=== PATIENT | female | born 1945 | race Caucasian/White ===

== ENCOUNTER 2020-10-31 19:24 | Emergency (ER) | payer OTHER ==
[~2020-10-31 19:24] MED LIST: ABILIFY5 M1 PO; ALPRAZOLAM 1MG T1 MG PO; AMBIEN CR12.5 MG PO; ARICEPT 5MG TABL5 MG PO; ASCORBIC ACID500 MG PO; ASPIRIN EC81 MG PO; AZO CRANBERRY1 EAC1 PO; BENTYL10 MG PO; BUSPIRONE HCL15 M1 PO; BUSPIRONE HCL15 MG PO; CITRATE OF MAG296 ML PO; COLACE100 MG PO; DICYCLOMINE 10M10 MG PO; DITROPAN5 MG PO; FLONASE ALLER15.8 ML; FLUTICASONE PRO16 GM INH; LEVAQUIN500 MG PO; LEVOTHYROXINE125 MCG PO; LISINOPRIL 20MG20 MG PO; LOPRESSOR25 MG PO; MACROBID100 MG PO; MACRODANTIN50 MG PO; MIRALAX17 GM PO; NORTRIPTYLINE H75 MG PO; OXYBUTYNIN CHLOR5 M1 PO; PAMELOR50 MG PO; PAMELOR75 MG PO; PRILOSEC20 MG PO; PRINIVIL20 MG PO; RISPERDAL 1MG TA1 MG PO; SYNTHROID112 MCG PO; SYNTHROID125 MC1 PO; SYNTHROID150 MCG PO; VITAMIN D3 COM1 EACH PO; VITAMIN D3250 MC1 PO; XANAX0.5 MG PO; XANAX1 MG PO; ZOFRAN4 MG PO; ZOLPIDEM TART12.5 MG PO
[2020-10-31 20:55] LABS: BASOPHIL 0.5 % (0-2); EOSINOPHIL 4.8 % (0-7); HGB 12.7 g/dl (12.5-16.0); LYMPHOCYTE 37.9 % (15-48); MCH 30.5 pg (25.0-31.0); MCHC 33.4 g/dL (32.0-36.0); MCV 91.3 fL (78.0-100.0); MONOCYTE 11.1 % (0-12); MPV 9.8 fL (6.0-9.5); NEUTROPHIL 45.5 % (41-80); NRBC 0; PLT 235 K/uL (150-400); RBC 4.16 M/uL (4.20-5.40); RDW 13.4 % (11.5-14.0); WBC 9.6 K/uL (4.0-10.5)
[2020-10-31 21:14] LABS: BILIRUBIN - TOTAL 0.3 mg/dL (0.2-1.0); BUN/CREAT RATIO (CALC) 17.4 RATIO; CREATININE 0.86 mg/dL (0.51-0.95); GLOBULIN (CALCULATION) 3.2 g/dL; TOTAL PROTEIN 6.2 g/dL (6.4-8.2)
[2020-10-31 21:20] LABS: LACTIC ACID 2.4 mmol/L (0.4-1.9)
[2020-11-01] MEDS ORDERED: CITRATE OF MAG296 ML PO (00:23)
[2020-11-01] MEDS ORDERED: GAS-X ULTRA ST180 MG PO (00:23)
[2020-11-01] MEDS ORDERED: ONDANSETRON ODT4 MG SL (00:23)
[2020-11-01] MEDS ORDERED: MIRALAX17 GM PO (00:23)
[2020-11-01] MEDS ORDERED: LEVSIN-SL0.125 M1 SL (00:23)
== END 2020-11-01 01:10 | disposition home or self-care (01) ==
LOC: FER 19:24
PROVIDERS: Emergency Medicine Emergency Medical Services
DX: K59.00 Constipation, unspecified (principal); I10 Essential (primary) hypertension; Z88.2 Allergy status to sulfonamides; Z88.8 Allergy status to other drugs, medicaments and biological substances
CPT/HCPCS: 36415; 74022; 80053; 83605; 83690; 84145; 85025; J2270; J2405; J7030

== ENCOUNTER 2020-12-12 09:42 | Emergency (ER) | payer OTHER ==
[~2020-12-12 09:42] MED LIST changes: +GAS-X ULTRA ST180 MG PO; +LEVSIN-SL0.125 M1 SL; +ONDANSETRON ODT4 MG SL
== END 2020-12-12 12:23 | disposition home or self-care (01) ==
LOC: FER 09:42
DX: M17.0 Bilateral primary osteoarthritis of knee (principal); M51.36 Other intervertebral disc degeneration, lumbar region; I10 Essential (primary) hypertension; Z88.0 Allergy status to penicillin; Z88.8 Allergy status to other drugs, medicaments and biological substances
CPT/HCPCS: 72100; 73560

== ENCOUNTER 2020-12-14 08:57 | Emergency (ER) | payer OTHER ==
[2020-12-14 10:28] LABS: BASOPHIL 0.5 % (0-2); EOSINOPHIL 6.4 % (0-7); HCT 42.9 % (37.0-47.0); HGB 14.3 g/dl (12.5-16.0); LYMPHOCYTE 24.5 % (15-48); MCH 30.7 pg (25.0-31.0); MCHC 33.3 g/dL (32.0-36.0); MCV 92.1 fL (78.0-100.0); MONOCYTE 9.7 % (0-12); NEUTROPHIL 58.6 % (41-80); NRBC 0; PLT 227 K/uL (150-400); RBC 4.66 M/uL (4.20-5.40); RDW 13.7 % (11.5-14.0); WBC 9.9 K/uL (4.0-10.5)
[2020-12-14 10:38] LABS: BILIRUBIN NEGATIVE (NEGATIVE); BLOOD NEGATIVE Ery/uL (NEGATIVE); COLOR YELLOW (YELLOW); GLUCOSE (U) NORMAL (NORMAL); LEUKOCYTES 2+ Leu/uL (NEGATIVE); NITRITE POSITIVE (NEGATIVE); PROTEIN NEGATIVE (NEGATIVE); UROBILINOGEN 0.2 mg/dL (0.2-1.0); pH 6.5 (5.0-9.0)
[2020-12-14 10:48] LABS: ALBUMIN 3.3 g/dL (3.4-5.0); BILIRUBIN - TOTAL 0.5 mg/dL (0.2-1.0); BUN/CREAT RATIO (CALC) 19.4 RATIO; CREATININE 1.24 mg/dL (0.51-0.95); GLOBULIN (CALCULATION) 3.3 g/dL; POTASSIUM 4.4 mmol/L (3.5-5.1); TOTAL PROTEIN 6.6 g/dL (6.4-8.2)
[2020-12-14 10:51] LABS: LACTIC ACID 1.6 mmol/L (0.4-1.9)
[2020-12-14 10:54] LABS: CLARITY CLOUDY (CLEAR)
[2020-12-14 11:07] LABS: BACTERIA 2+
[2020-12-14] MEDS ORDERED: NORCO 5-325 TA1 EACH PO (11:18)
[2020-12-14] MEDS ORDERED: MACROBID100 MG PO (11:18)
== END 2020-12-14 12:56 | disposition home or self-care (01) ==
LOC: FER 08:57
PROVIDERS: Internal Medicine
DX: M53.3 Sacrococcygeal disorders, not elsewhere classified (principal); N39.0 Urinary tract infection, site not specified; M25.552 Pain in left hip; Z88.1 Allergy status to other antibiotic agents; I10 Essential (primary) hypertension; Z88.2 Allergy status to sulfonamides; W01.10XA Fall on same level from slipping, tripping and stumbling with subsequent striking against unspecified object, initial encounter; Y92.009 Unspecified place in unspecified non-institutional (private) residence as the place of occurrence of the external cause
CPT/HCPCS: 36415; 70450; 71045; 80053; 81001; 83605; 83880; 84145; 84484; 85025; 87076; 87088; 87186; 93005; J0696

== ENCOUNTER 2021-04-04 06:38 | Emergency (ER) | payer OTHER ==
[~2021-04-04 06:38] MED LIST changes: +NORCO 5-325 TA1 EACH PO
[2021-04-04 07:42] LABS: BASOPHIL 0.8 % (0-2); EOSINOPHIL 2.4 % (0-7); HCT 41.5 % (37.0-47.0); HGB 13.9 g/dl (12.5-16.0); LYMPHOCYTE 21.6 % (15-48); MCH 30.4 pg (25.0-31.0); MCHC 33.5 g/dL (32.0-36.0); MCV 90.8 fL (78.0-100.0); MONOCYTE 10.4 % (0-12); MPV 9.3 fL (6.0-9.5); NEUTROPHIL 64.2 % (41-80); NRBC 0; PLT 259 K/uL (150-400); RBC 4.57 M/uL (4.20-5.40); RDW 13.4 % (11.5-14.0); WBC 10.4 K/uL (4.0-10.5)
[2021-04-04 08:07] LABS: BUN/CREAT RATIO (CALC) 19.4 RATIO; CREATININE 0.93 mg/dL (0.51-0.95); POTASSIUM 3.5 mmol/L (3.5-5.1)
[2021-04-04 08:23] LABS: BILIRUBIN NEGATIVE (NEGATIVE); BLOOD NEGATIVE Ery/uL (NEGATIVE); CLARITY CLEAR (CLEAR); COLOR YELLOW (YELLOW); GLUCOSE (U) NORMAL (NORMAL); LEUKOCYTES 3+ Leu/uL (NEGATIVE); NITRITE NEGATIVE (NEGATIVE); PROTEIN NEGATIVE (NEGATIVE); SPECIFIC GRAVITY 1.015 (1.001-1.030); UROBILINOGEN 0.2 mg/dL (0.2-1.0)
[2021-04-04 08:57] LABS: BACTERIA 1+; URINARY WBC 20-50
[2021-04-04] MEDS ORDERED: MACROBID100 MG PO (09:09)
== END 2021-04-04 09:50 | disposition home or self-care (01) ==
LOC: FER 06:38
PROVIDERS: Emergency Medicine
DX: R68.2 Dry mouth, unspecified (principal); N39.0 Urinary tract infection, site not specified; I10 Essential (primary) hypertension; Z88.2 Allergy status to sulfonamides; Z88.8 Allergy status to other drugs, medicaments and biological substances
CPT/HCPCS: 36415; 80048; 81001; 85025; 99283; J7040

== ENCOUNTER 2021-06-02 18:31 | Inpatient (IN) | payer OTHER ==
[~2021-06-02] VITALS: Ht 165.1 cm; Wt 73.1 kg
[2021-06-02 19:24] LABS: BILIRUBIN NEGATIVE (NEGATIVE); BLOOD NEGATIVE Ery/uL (NEGATIVE); CLARITY CLEAR (CLEAR); COLOR YELLOW (YELLOW); GLUCOSE (U) NORMAL (NORMAL); LEUKOCYTES 1+ Leu/uL (NEGATIVE); NITRITE POSITIVE (NEGATIVE); PROTEIN NEGATIVE (NEGATIVE); UROBILINOGEN 0.2 mg/dL (0.2-1.0)
[2021-06-02 19:32] LABS: AMORPHOUS URATES CRYSTALS TRACE; BACTERIA TRACE; MUCOUS TRACE; URINARY RBC RARE
[2021-06-02 19:41] LABS: BASOPHIL 0.8 % (0-2); EOSINOPHIL 1.2 % (0-7); HGB 15.7 g/dl (12.5-16.0); LYMPHOCYTE 32.3 % (15-48); MCH 30.1 pg (25.0-31.0); MCHC 34.1 g/dL (32.0-36.0); MCV 88.3 fL (78.0-100.0); MONOCYTE 8.1 % (0-12); MPV 9.9 fL (6.0-9.5); NEUTROPHIL 57.3 % (41-80); NRBC 0; PLT 285 K/uL (150-400); RBC 5.21 M/uL (4.20-5.40); RDW 12.8 % (11.5-14.0); WBC 11.8 K/uL (4.0-10.5)
[2021-06-02 20:08] LABS: BILIRUBIN - TOTAL 0.5 mg/dL (0.2-1.0); BUN/CREAT RATIO (CALC) 16.7 RATIO; CREATININE 1.02 mg/dL (0.51-0.95); GLOBULIN (CALCULATION) 4.2 g/dL; POTASSIUM 3.8 mmol/L (3.5-5.1); TOTAL PROTEIN 8.2 g/dL (6.4-8.2)
[2021-06-02 20:25] LABS: LACTIC ACID 0.9 mmol/L (0.4-1.9)
[2021-06-02] MEDS ORDERED: ASPIRIN EC81 MG PO (23:09)
[2021-06-02] MEDS ORDERED: CRANBERRY250 MG PO (23:17)
[2021-06-03 06:11] LABS: BASOPHIL 0.6 % (0-2); EOSINOPHIL 0.4 % (0-7); HCT 42.2 % (37.0-47.0); HGB 14.8 g/dl (12.5-16.0); LYMPHOCYTE 25.7 % (15-48); MCH 30.7 pg (25.0-31.0); MCHC 35.1 g/dL (32.0-36.0); MCV 87.6 fL (78.0-100.0); MPV 9.7 fL (6.0-9.5); NRBC 0; PLT 252 K/uL (150-400); RBC 4.82 M/uL (4.20-5.40); RDW 12.9 % (11.5-14.0); WBC 12.9 K/uL (4.0-10.5)
[2021-06-03 07:05] LABS: ALBUMIN 3.5 g/dL (3.4-5.0); BILIRUBIN - TOTAL 0.8 mg/dL (0.2-1.0); BUN/CREAT RATIO (CALC) 13.7 RATIO; CREATININE 0.95 mg/dL (0.51-0.95); GLOBULIN (CALCULATION) 3.6 g/dL; MAGNESIUM 1.5 mg/dL (1.8-2.4); PHOSPHORUS 3.8 mg/dL (2.6-4.7); POTASSIUM 3.6 mmol/L (3.5-5.1); TOTAL PROTEIN 7.1 g/dL (6.4-8.2)
[2021-06-04 05:59] LABS: BASOPHIL 0.7 % (0-2); EOSINOPHIL 3.6 % (0-7); HCT 43.4 % (37.0-47.0); HGB 14.6 g/dl (12.5-16.0); LYMPHOCYTE 36.5 % (15-48); MCH 29.8 pg (25.0-31.0); MCHC 33.6 g/dL (32.0-36.0); MCV 88.6 fL (78.0-100.0); MONOCYTE 11.2 % (0-12); MPV 9.5 fL (6.0-9.5); NEUTROPHIL 47.7 % (41-80); NRBC 0; PLT 255 K/uL (150-400); RDW 13.2 % (11.5-14.0); WBC 9.8 K/uL (4.0-10.5)
[2021-06-04 06:20] LABS: BUN/CREAT RATIO (CALC) 13.5 RATIO; CREATININE 0.96 mg/dL (0.51-0.95); POTASSIUM 3.8 mmol/L (3.5-5.1)
[2021-06-05 06:38] LABS: BASOPHIL 0.8 % (0-2); EOSINOPHIL 5.5 % (0-7); HCT 40.5 % (37.0-47.0); HGB 13.2 g/dl (12.5-16.0); LYMPHOCYTE 32.8 % (15-48); MCH 29.9 pg (25.0-31.0); MCHC 32.6 g/dL (32.0-36.0); MCV 91.8 fL (78.0-100.0); MPV 9.7 fL (6.0-9.5); NEUTROPHIL 50.6 % (41-80); NRBC 0; PLT 223 K/uL (150-400); RBC 4.41 M/uL (4.20-5.40); RDW 13.6 % (11.5-14.0); WBC 10.3 K/uL (4.0-10.5)
[2021-06-05 07:13] LABS: BUN/CREAT RATIO (CALC) 15.8 RATIO; CREATININE 1.14 mg/dL (0.51-0.95); POTASSIUM 3.9 mmol/L (3.5-5.1)
[2021-06-05] MEDS ORDERED: FLORANEX TABLE1 EACH PO (08:32)
[2021-06-06 06:27] LABS: BASOPHIL 0.9 % (0-2); EOSINOPHIL 5.6 % (0-7); HCT 40.9 % (37.0-47.0); HGB 13.3 g/dl (12.5-16.0); LYMPHOCYTE 32.5 % (15-48); MCH 30.1 pg (25.0-31.0); MCHC 32.5 g/dL (32.0-36.0); MCV 92.5 fL (78.0-100.0); MONOCYTE 9.3 % (0-12); MPV 10.1 fL (6.0-9.5); NEUTROPHIL 51.4 % (41-80); NRBC 0; PLT 228 K/uL (150-400); RBC 4.42 M/uL (4.20-5.40); RDW 13.5 % (11.5-14.0); WBC 9.3 K/uL (4.0-10.5)
== END 2021-06-06 14:20 | disposition home or self-care (01) | DRG 689 ==
LOC: FER 18:31 → FMS 20:58
PROVIDERS: Emergency Medicine; Family Medicine; Nurse Practitioner; ADMIT Internal Medicine
DX: N30.00 Acute cystitis without hematuria (principal); G93.41 Metabolic encephalopathy; Z20.822 Contact with and (suspected) exposure to COVID-19; I12.9 Hypertensive chronic kidney disease with stage 1 through stage 4 chronic kidney disease, or unspecified chronic kidney disease; N18.30 Chronic kidney disease, stage 3 unspecified; K59.01 Slow transit constipation; B95.61 Methicillin susceptible Staphylococcus aureus infection as the cause of diseases classified elsewhere; F25.9 Schizoaffective disorder, unspecified; E83.42 Hypomagnesemia; K21.9 Gastro-esophageal reflux disease without esophagitis; M19.90 Unspecified osteoarthritis, unspecified site; Z96.651 Presence of right artificial knee joint; Z79.899 Other long term (current) drug therapy; Z88.2 Allergy status to sulfonamides; Z88.1 Allergy status to other antibiotic agents; Z88.8 Allergy status to other drugs, medicaments and biological substances; Z90.49 Acquired absence of other specified parts of digestive tract; Z90.710 Acquired absence of both cervix and uterus; Z98.890 Other specified postprocedural states
CPT/HCPCS: 36415; 70450; 80048; 80053; 81001; 83605; 83735; 84100; 84145; 85025; 87040; 87076; 87088; 87186; 97110; 97162; 97165; 97530-GP; 97535; G0378; J1630; J1650; J2060; J2543; J3490; J7030; U0002

== ENCOUNTER 2021-09-02 06:48 | Emergency (ER) | payer OTHER ==
[~2021-09-02 06:48] MED LIST changes: +CRANBERRY250 MG PO; +FLORANEX TABLE1 EACH PO
[2021-09-02 08:12] LABS: BASOPHIL 0.7 % (0-2); EOSINOPHIL 4.8 % (0-7); HCT 43.4 % (37.0-47.0); HGB 14.5 g/dl (12.5-16.0); LYMPHOCYTE 31.4 % (15-48); MCH 30.4 pg (25.0-31.0); MCHC 33.4 g/dL (32.0-36.0); MONOCYTE 10.5 % (0-12); MPV 9.8 fL (6.0-9.5); NEUTROPHIL 52.2 % (41-80); NRBC 0; PLT 259 K/uL (150-400); RBC 4.77 M/uL (4.20-5.40); RDW 13.2 % (11.5-14.0); WBC 10.1 K/uL (4.0-10.5)
[2021-09-02 08:41] LABS: BILIRUBIN NEGATIVE (NEGATIVE); BLOOD NEGATIVE Ery/uL (NEGATIVE); COLOR YELLOW (YELLOW); GLUCOSE (U) NORMAL (NORMAL); LEUKOCYTES 2+ Leu/uL (NEGATIVE); NITRITE NEGATIVE (NEGATIVE); PROTEIN NEGATIVE (NEGATIVE); SPECIFIC GRAVITY <=1.005 (1.001-1.030); UROBILINOGEN 0.2 mg/dL (0.2-1.0)
[2021-09-02 08:42] LABS: CLARITY HAZY (CLEAR)
[2021-09-02 08:48] LABS: BACTERIA TRACE; URINARY RBC RARE; URINARY WBC 20-50
[2021-09-02 08:50] LABS: ALBUMIN 3.5 g/dL (3.4-5.0); BILIRUBIN - TOTAL 0.2 mg/dL (0.2-1.0); BUN/CREAT RATIO (CALC) 16.5 RATIO; CREATININE 1.03 mg/dL (0.51-0.95); GLOBULIN (CALCULATION) 3.7 g/dL; POTASSIUM 4.1 mmol/L (3.5-5.1); TOTAL PROTEIN 7.2 g/dL (6.4-8.2)
[2021-09-02] MEDS ORDERED: BENZTROPINE MESY1 MG PO (09:18)
== END 2021-09-02 09:34 | disposition home or self-care (01) ==
LOC: FER 06:48
PROVIDERS: Emergency Medicine
DX: N39.0 Urinary tract infection, site not specified (principal); E05.90 Thyrotoxicosis, unspecified without thyrotoxic crisis or storm; E03.9 Hypothyroidism, unspecified; M54.2 Cervicalgia; I10 Essential (primary) hypertension; Z88.2 Allergy status to sulfonamides; Z88.8 Allergy status to other drugs, medicaments and biological substances; Z79.890 Hormone replacement therapy; Z79.899 Other long term (current) drug therapy
CPT/HCPCS: 36415; 36600; 71045; 80053; 81001; 82803; 84439; 84443; 84481; 85025; 87088

== ENCOUNTER 2021-09-21 01:06 | Emergency (ER) | payer OTHER ==
[~2021-09-21 01:06] MED LIST changes: +BENZTROPINE MESY1 MG PO
== END 2021-09-21 02:52 | disposition home or self-care (01) ==
LOC: FER 01:06
DX: S01.112A Laceration without foreign body of left eyelid and periocular area, initial encounter (principal); S51.012A Laceration without foreign body of left elbow, initial encounter; Z88.0 Allergy status to penicillin; Z88.1 Allergy status to other antibiotic agents; Z88.2 Allergy status to sulfonamides; W18.30XA Fall on same level, unspecified, initial encounter; Y92.129 Unspecified place in nursing home as the place of occurrence of the external cause
CPT/HCPCS: 70450; 70486; 72125

== ENCOUNTER 2021-10-28 10:58 | Emergency (ER) | payer OTHER ==
[2021-10-28 14:26] LABS: BASOPHIL 1.1 % (0-2); EOSINOPHIL 3.1 % (0-7); HCT 45.9 % (37.0-47.0); HGB 15.1 g/dl (12.5-16.0); LYMPHOCYTE 42.7 % (15-48); MCH 30.1 pg (25.0-31.0); MCHC 32.9 g/dL (32.0-36.0); MCV 91.6 fL (78.0-100.0); MONOCYTE 11.4 % (0-12); MPV 9.8 fL (6.0-9.5); NEUTROPHIL 41.5 % (41-80); NRBC 0.2; PLT 232 K/uL (150-400); RBC 5.01 M/uL (4.20-5.40); RDW 13.4 % (11.5-14.0); WBC 9.4 K/uL (4.0-10.5)
[2021-10-28 15:17] LABS: LACTIC ACID 1.1 mmol/L (0.4-1.9)
[2021-10-28 16:14] LABS: BILIRUBIN NEGATIVE (NEGATIVE); BLOOD TRACE-INTACT Ery/uL (NEGATIVE); CLARITY CLOUDY (CLEAR); COLOR YELLOW (YELLOW); GLUCOSE (U) NORMAL (NORMAL); LEUKOCYTES 3+ Leu/uL (NEGATIVE); NITRITE NEGATIVE (NEGATIVE); PROTEIN TRACE (LOW) mg/dL (NEGATIVE); SPECIFIC GRAVITY 1.025 (1.001-1.030); UROBILINOGEN 0.2 mg/dL (0.2-1.0); pH 6.5 (5.0-9.0)
[2021-10-28 16:22] LABS: URINARY WBC 20-50
[2021-10-28 16:23] LABS: BACTERIA 4+; MUCOUS MODERATE
[2021-10-28 16:31] LABS: ALBUMIN 3.5 g/dL (3.4-5.0); BILIRUBIN - TOTAL 0.3 mg/dL (0.2-1.0); CREATININE 1.14 mg/dL (0.51-0.95); GLOBULIN (CALCULATION) 3.6 g/dL; POTASSIUM 4.4 mmol/L (3.5-5.1); TOTAL PROTEIN 7.1 g/dL (6.4-8.2)
== END 2021-10-28 18:32 | disposition home or self-care (01) ==
LOC: FER 10:58
PROVIDERS: Emergency Medicine
DX: K59.00 Constipation, unspecified (principal); I10 Essential (primary) hypertension; Z88.1 Allergy status to other antibiotic agents; Z88.8 Allergy status to other drugs, medicaments and biological substances; Z79.899 Other long term (current) drug therapy; Z79.82 Long term (current) use of aspirin
CPT/HCPCS: 36415; 74018; 80053; 81001; 83605; 83690; 84484; 85025; 93005